=== PATIENT | female | born 1950 | race Caucasian/White ===

== ENCOUNTER → 2018-04-21 | Outpatient (CLI) | payer MEDICARE, BC | END | disposition home or self-care (01) | LOC: HKI 09:32 | DX: M17.0 Bilateral primary osteoarthritis of knee (principal); I10 Essential (primary) hypertension; Z88.0 Allergy status to penicillin | CPT/HCPCS: G0463 ==

== ENCOUNTER → 2018-05-26 | Outpatient (CLI) | payer MEDICARE, BC | END | disposition home or self-care (01) | LOC: HKI 11:09 | DX: Z01.818 Encounter for other preprocedural examination (principal); M17.11 Unilateral primary osteoarthritis, right knee | CPT/HCPCS: G0463 ==

== ENCOUNTER 2018-06-05 09:47 | Inpatient (IN) | payer MEDICARE, BC ==
[~2018-06-05 09:47] MED LIST: EPHEDrine SULFATE 50 MG/5 ML SYG
[2018-06-05] MEDS ORDERED: BISACODYL 10 MG SUPP PR (12:00)
[2018-06-05] MEDS ORDERED: MAGNESIUM HYDROXIDE 30ML CUP PO (12:00)
[2018-06-05] MEDS ORDERED: NALOXONE (0.4 MG/ML) INJ IV (12:00)
[2018-06-05] MEDS ORDERED: DIPHENHYDRAMINE 50 MG INJ IV ×2 (12:00→15:00)
[2018-06-05] MEDS ORDERED: NA PHOSPHATE/BIPHOS 133 ML ENEMA PR (12:00)
[2018-06-05] MEDS ORDERED: oxyCODONE 5 MG TAB PO (12:00)
[2018-06-05] MEDS ORDERED: BETHANECHOL 25 MG TAB PO (12:00)
[2018-06-05] MEDS: LANSOPRAZOLE 30 MG CAP PO (12:11)
[2018-06-05] MEDS: ONDANSETRON 4 MG INJ IV ×3 (12:11→18:00)
[2018-06-05] MEDS: DEXAMETHASONE 4 MG/ML 1 ML INJ IV (12:13)
[2018-06-05] MEDS: ACETAMINOPHEN 1000MG/100ML IV 100 ML IVPB (12:13)
[2018-06-05] MEDS ORDERED: MIDAZOLAM 1 MG/ML 2 ML INJ (14:30)
[2018-06-05] MEDS ORDERED: BUPIVACAINE 0.75%/DEXT (SPINAL) 2 ML INJ (14:30)
[2018-06-05] MEDS ORDERED: FENTAnyl 50 MCG/ML VIAL (14:30)
[2018-06-05] MEDS: CLINDAMYCIN 600 MG/D5W (PMX) 50 ML IVPB ×2 (14:32→16:58)
[2018-06-05] MEDS: TRANEXAMIC ACID 1,000 MG in NS 100 ML INTRA-OP X1 IVPB (14:45)
[2018-06-05] MEDS ORDERED: PROCHLORPERAZINE 10 MG INJ IV (15:00)
[2018-06-05] MEDS ORDERED: LABETALOL HCL 20MG INJ IV (15:00)
[2018-06-05] MEDS ORDERED: ONDANSETRON 4 MG INJ IV (15:00)
[2018-06-05] MEDS ORDERED: hydrALAzine 20 MG INJ IV (15:00)
[2018-06-05] MEDS ORDERED: FENTAnyl 50 MCG/ML VIAL IV (15:00)
[2018-06-05] MEDS ORDERED: MEPERIDINE 25 MG INJ IV (15:00)
[2018-06-05] MEDS ORDERED: HYDROmorphONE 1 MG/5 ML IV SYRINGE IV (15:00)
[2018-06-05] MEDS: POLYMYXIN B 500000 UNIT INJ (15:15)
[2018-06-05] MEDS: BACITRACIN 50000 UNITS INJ (15:15)
[2018-06-05] MEDS ORDERED: LIDOCAINE 2% (SDV) 5 ML INJ (15:24)
[2018-06-05] MEDS ORDERED: ONDANSETRON 4 MG INJ (15:24)
[2018-06-05] MEDS ORDERED: DEXAMETHASONE 4 MG/ML 1 ML INJ (15:24)
[2018-06-05] MEDS ORDERED: PROPOFOL 20 ML ×3 (15:24→16:07)
[2018-06-05] MEDS: TRANEXAMIC ACID 1,000 MG in NS 100 ML PRE-OP X1 IVPB (16:00)
[2018-06-05] MEDS: HYDROmorphONE 1 MG/5 ML IV SYRINGE IV ×4 (16:56→17:45)
[2018-06-05] MEDS: DOCUSATE SODIUM 100 MG CAP PO (17:12)
[2018-06-05] MEDS: ASPIRIN (EC) 325 MG TAB PO (17:12)
[2018-06-05] MEDS ORDERED: VANCOMYCIN 1 GM (PMX) 250 ML IVPB (18:00)
[2018-06-05] MEDS: SOD CHLORIDE 0.9% 1,000 ML IV (18:17)
[2018-06-05] MEDS: GABAPENTIN 100 MG CAP PO (19:32)
[2018-06-05] MEDS: oxyCODONE 5 MG TAB PO ×2 (19:58→22:31)
[2018-06-06] MEDS: SOD CHLORIDE 0.9% 1,000 ML IV ×2 (00:03→12:33)
[2018-06-06] MEDS: CLINDAMYCIN 600 MG/D5W (PMX) 50 ML IVPB ×3 (00:21→11:51)
[2018-06-06] MEDS: ONDANSETRON 4 MG INJ IV ×2 (00:21→06:30)
[2018-06-06] MEDS: oxyCODONE 5 MG TAB PO ×5 (01:32→20:48)
[2018-06-06 05:49] LABS: ADD MAN DIFF? NO; BASOPHILS % 0.2 % (0.0-2.0); HEMATOCRIT 38.7 % (37.0-47.0); HEMOGLOBIN 12.8 g/dl (12.0-16.0); LYMPHOCYTES # 1.7 10^3/ul (0.8-2.9); LYMPHOCYTES % 10.9 % (15.0-51.0); MEAN CORPUSCULAR HEMOGLOBIN 29.2 pg (29.0-33.0); MEAN CORPUSCULAR HGB CONC 33.1 g/dl (32.0-37.0); MEAN CORPUSCULAR VOLUME 88.4 fl (82.0-101.0); MEAN PLATELET VOLUME 10.2 fl (7.4-10.4); MONOCYTE # 1.4 10^3/ul (0.3-0.9); MONOCYTES % 9.3 % (0.0-11.0); NEUTROPHILS % 78.8 % (39.0-77.0); PLATELET COUNT 228 10^3/UL (140-415); RED BLOOD COUNT 4.38 10^6/ul (4.20-5.40); RED CELL DISTRIBUTION WIDTH 12.3 % (11.5-14.5)
[2018-06-06 05:49] LABS: WHITE BLOOD COUNT 15.2 10^3/ul (4.8-10.8)
[2018-06-06 06:09] LABS: ANION GAP 13 (8-16); BLOOD UREA NITROGEN 9 mg/dl (7-20); CARBON DIOXIDE 24 mmol/L (21-31); CHLORIDE 106 mmol/L (97-110); CREATININE 0.48 mg/dl (0.44-1.00); GLUCOSE 125 mg/dl (70-220); POTASSIUM 3.9 mmol/L (3.5-5.1); SODIUM 139 mmol/L (135-144)
[2018-06-06] MEDS ORDERED: BIOTIN 5000 MCG PO (09:00)
[2018-06-06] MEDS: PROGESTERONE 100 MG CAP PO (09:00)
[2018-06-06] MEDS ORDERED: UBIDECARENONE 200 MG PO (09:00)
[2018-06-06] MEDS: AMLODIPINE 5 MG TAB PO (09:00)
[2018-06-06] MEDS: GABAPENTIN 100 MG CAP PO ×2 (09:03→21:00)
[2018-06-06] MEDS: FERROUS FUMARATE (SR) TAB PO ×2 (09:03→21:00)
[2018-06-06] MEDS: ASPIRIN (EC) 325 MG TAB PO (09:03)
[2018-06-06] MEDS: DOCUSATE SODIUM 100 MG CAP PO ×2 (09:03→21:00)
[2018-06-06] MEDS: CHOLECALCIFEROL 1,000 UNIT TAB PO (09:04)
[2018-06-06] MEDS: MAGNESIUM OXIDE 400 MG TAB PO (09:04)
[2018-06-06] MEDS: METOPROLOL (XL) 25 MG TAB PO (09:05)
[2018-06-06] MEDS: ACETAMINOPHEN 325 MG TAB PO ×2 (18:56→22:54)
[2018-06-07] MEDS: SOD CHLORIDE 0.9% 1,000 ML IV (01:03)
[2018-06-07] MEDS: oxyCODONE 5 MG TAB PO ×4 (01:20→12:30)
[2018-06-07] MEDS: PANTOPRAZOLE (EC) 40 MG TAB PO (05:10)
[2018-06-07] MEDS: ACETAMINOPHEN 325 MG TAB PO ×2 (05:11→11:01)
[2018-06-07 06:00] LABS: ADD MAN DIFF? NO
[2018-06-07 06:08] LABS: BASOPHIL # 0.1 10^3/ul (0.0-0.1); BASOPHILS % 0.7 % (0.0-2.0); EOSINOPHILS # 0.1 10^3/ul (0.0-0.5); EOSINOPHILS % 1.4 % (0.0-7.0); HEMATOCRIT 39.1 % (37.0-47.0); HEMOGLOBIN 12.3 g/dl (12.0-16.0); LYMPHOCYTES # 2.4 10^3/ul (0.8-2.9); MEAN CORPUSCULAR HEMOGLOBIN 28.3 pg (29.0-33.0); MEAN CORPUSCULAR HGB CONC 31.5 g/dl (32.0-37.0); MEAN CORPUSCULAR VOLUME 89.9 fl (82.0-101.0); MEAN PLATELET VOLUME 10.3 fl (7.4-10.4); MONOCYTE # 1.4 10^3/ul (0.3-0.9); MONOCYTES % 13.4 % (0.0-11.0); NEUTROPHIL # 6.3 10^3/ul (1.6-7.5); PLATELET COUNT 218 10^3/UL (140-415); RED BLOOD COUNT 4.35 10^6/ul (4.20-5.40); RED CELL DISTRIBUTION WIDTH 13.1 % (11.5-14.5)
[2018-06-07 06:08] LABS: WHITE BLOOD COUNT 10.3 10^3/ul (4.8-10.8)
[2018-06-07 06:25] LABS: ANION GAP 9 (8-16); BLOOD UREA NITROGEN 10 mg/dl (7-20); CALCIUM 9.3 mg/dl (8.4-10.2); CARBON DIOXIDE 31 mmol/L (21-31); CHLORIDE 106 mmol/L (97-110); CREATININE 0.57 mg/dl (0.44-1.00); GLUCOSE 110 mg/dl (70-220); POTASSIUM 4.9 mmol/L (3.5-5.1); SODIUM 141 mmol/L (135-144)
[2018-06-07] MEDS: DOCUSATE SODIUM 100 MG CAP PO (09:20)
[2018-06-07] MEDS: SENNA/DOCUSATE NA (8.6MG/50MG) TAB PO (09:20)
[2018-06-07] MEDS: ASPIRIN (EC) 325 MG TAB PO (09:21)
[2018-06-07] MEDS: FERROUS FUMARATE (SR) TAB PO (09:21)
[2018-06-07] MEDS: MAGNESIUM OXIDE 400 MG TAB PO (09:21)
[2018-06-07] MEDS: CHOLECALCIFEROL 1,000 UNIT TAB PO (09:21)
[2018-06-07] MEDS: GABAPENTIN 100 MG CAP PO (09:21)
[2018-06-07] MEDS: PROGESTERONE 100 MG CAP PO (09:21)
[2018-06-07] MEDS: AMLODIPINE 5 MG TAB PO (09:23)
[2018-06-07] MEDS: METOPROLOL (XL) 25 MG TAB PO (09:23)
== END 2018-06-07 13:00 | disposition home health service (06) | DRG 470 ==
LOC: REC 09:47 → MS1 18:00
PROC: 0SRC0J9 Replacement of Right Knee Joint with Synthetic Substitute, Cemented, Open Approach (ICD-10-PCS; principal; 2018-06-05 14:29)
DX: M17.11 Unilateral primary osteoarthritis, right knee (principal); I10 Essential (primary) hypertension
CPT/HCPCS: 73560; 80048; 85025; 86850; 86900; 86901; 87081; 88304; 88311; 97110; 97116; 97161; 97167; 97530